=== PATIENT | female | born 1985 | race African-American/Black ===

== ENCOUNTER 2020-06-24 08:18 | Emergency (ER) | payer SELFPAY ==
[~2020-06-24] VITALS: Ht 167.6 cm; Wt 94.3 kg
[2020-06-24] MEDS ORDERED: KETOROLAC TROMETHAMINE 60 MG/2 ML VIAL IM ONE (09:00)
[2020-06-24] MEDS ORDERED: PREDNISONE20 MG PO (10:14)
[2020-06-24] MEDS ORDERED: ULTRAM 50MG50 MG PO (10:18)
[2020-06-24] MEDS ORDERED: KETOROLAC TROMETHAMINE 60 MG/2 ML VIAL ONE (10:24)
[2020-06-24 10:34] VITALS: BP 134/86
== END 2020-06-24 10:35 | disposition home or self-care (01) ==
LOC: FSED 08:42
DX: M25.511 Pain in right shoulder (principal); M75.51 Bursitis of right shoulder; X50.0XXA Overexertion from strenuous movement or load, initial encounter; F17.210 Nicotine dependence, cigarettes, uncomplicated
CPT/HCPCS: 73030; 99283; J1885

== ENCOUNTER 2021-12-31 15:12 | Emergency (ER) | payer SELFPAY ==
[~2021-12-31] VITALS: Ht 167.6 cm; Wt 92.7 kg
[~2021-12-31 15:12] MED LIST: PREDNISONE20 MG PO; ULTRAM 50MG50 MG PO
[2021-12-31] MEDS ORDERED: KETOROLAC TROMETHAMINE 60 MG/2 ML VIAL IM ONE (16:45)
[2021-12-31] MEDS ORDERED: NAPROSYN500 MG PO (16:50)
[2021-12-31] MEDS ORDERED: FIORICET 50-301 EACH PO (16:53)
[2021-12-31] MEDS ORDERED: KETOROLAC TROMETHAMINE 60 MG/2 ML VIAL ONE (16:53)
== END 2021-12-31 17:02 | disposition home or self-care (01) ==
LOC: FSED 15:28
DX: G44.209 Tension-type headache, unspecified, not intractable (principal); M54.2 Cervicalgia; M25.511 Pain in right shoulder; F17.210 Nicotine dependence, cigarettes, uncomplicated
CPT/HCPCS: 81003; 81025; 96372; 99283; J1885

== ENCOUNTER 2022-09-03 20:59 | Emergency (ER) | payer SELFPAY ==
[~2022-09-03] VITALS: Ht 167.6 cm; Wt 92.5 kg
[~2022-09-03 20:59] MED LIST changes: +FIORICET 50-301 EACH PO; +NAPROSYN500 MG PO
[2022-09-03 21:47] VITALS: O2SAT 96
[2022-09-03] MEDS ORDERED: IBUPROFEN 600 MG TAB PO STA (22:03)
[2022-09-03] MEDS ORDERED: IBUPROFEN 600 MG TAB ONE (22:09)
[2022-09-03] MEDS ORDERED: TAMIFLU75 MG PO (22:11)
[2022-09-03] MEDS ORDERED: IBUPROFEN600 MG PO (22:12)
== END 2022-09-03 22:18 | disposition home or self-care (01) ==
LOC: FSED 21:21
DX: R50.9 Fever, unspecified (principal); R09.89 Other specified symptoms and signs involving the circulatory and respiratory systems; F17.210 Nicotine dependence, cigarettes, uncomplicated
CPT/HCPCS: 83518; 87400; 99283